=== PATIENT | female | born 1975 | race Caucasian/White ===

== ENCOUNTER 2017-08-27 15:45 | Emergency (ER) ==
[2017-08-27 15:51] VITALS: BP 124/82; TEMP 99.3; BMI 31.0
--- NOTE | 2017-08-27 19:07 | ED.PDOC ---
General ED Provider: Dr. JOSLYN RODRIGUEZ Chief Complaint: Respiratory Complaint Stated Complaint: Patient is a 42 year old male who comes to the Er with complaints of body aches fever, States has been exposed to the FLU. T-max 103 Time Seen by Physician: 19:05 Mode of Arrival: Walk-In Information Source: Patient Exam Limitations: No limitations Nursing and Triage Documentation Reviewed and Agree: Yes Reviewed sepsis parameters & appropriate labs ordered?: Yes System Inflammatory Response Syndrome: Pulse >90 BPM Sepsis Protocol: For patient's 13 years and over: Temp is 96.8 and below OR 101 and greater Pulse >90 BPM Resp >20/minute Acutely Altered Mental Status Are patient's symptoms suggestive of a new infection, such as: -Pneumonia -Skin, Soft Tissue -Endocarditis -UTI -Bone, Joint Infection -Implantable Device -Acute Abdominal Infection -Wound Infection -Meningitis -Blood Stream Catheter Infection -Unknown System Inflammatory Response Syndrome: Not Applicable Review of Systems - Review Of Systems Constitutional: Reports: Fever, Malaise, Weakness Eyes: Reports: No symptoms Ears, Nose, Mouth, Throat: Reports: No symptoms Respiratory: Reports: Cough Cardiac: Reports: No symptoms GI: Reports: No symptoms : Reports: No symptoms Musculoskeletal: Reports: No symptoms Skin: Reports: No symptoms Neurological: Reports: Headache Endocrine: Reports: No symptoms Hematologic/Lymphatic: Reports: No symptoms All Other Systems: Reviewed and Negative Past Medical History - Past Medical History Previously Healthy: Yes Endocrine: Reports: None Cardiovascular: Reports: None Respiratory: Reports: None Hematological: Reports: None Gastrointestinal: Reports: None Genitourinary: Reports: None Neuro/Psych: Reports: None Musculoskeletal: Reports: None Cancer: Reports: None Last Menstrual Period: NA - Surgical History General Surgical History: Reports: Orthopedic - Family History Family History: Reports: Unknown - Social History Smoking Status: Current some day smoker Hx Substance Use: No Alcohol Screening: None - Immunizations Tetanus Shot up to Date: Yes Physical Exam - Physical Exam Appearance: Ill-appearing Ill-appearing: Moderate Pain Distress: Moderate Eyes: CHELA, EOMI, Conjunctiva clear ENT: Ears normal Neck: Supple Respiratory: Airway patent, Breath sounds clear, Breath sounds equal, Respirations nonlabored Cardiovascular: RRR, Pulses normal, No rub, No murmur GI/: Soft, Nontender, No masses, Bowel sounds normal, No Organomegaly Musculoskeletal: Normal strength, ROM intact, No edema, No calf tenderness Skin: Warm, Dry, Normal color Neurological: Sensation intact, Motor intact, Reflexes intact, Cranial nerves intact, Alert, Oriented Psychiatric: Affect appropriate, Mood appropriate Interpretation - Radiology Interpretation Radiology Interpretation By: ED Physician Radiology Results: Negative Exam Interpreted: CXR Critical Care Note - Critical Care Note Total Time (mins): 0 Course - Course Orders, Labs, Meds: Lab Review 08/27/17 17:11 Influenza A (Rapid) Negative by naat Influenza B (Rapid) Negative by naat Orders Category Date Time Status FLU A & B MOLECULAR [FLU A/B MOLECULAR] Stat LAB 08/27/17 17:11 Completed MOLECULAR GROUP A STREP Stat LAB 08/27/17 17:11 Completed Ibuprofen [Motrin] MEDS 08/27/17 19:05 Discontinued 800 mg PO ONCE STA Ondansetron [Zofran Odt] MEDS 08/27/17 19:07 Discontinued 4 mg PO ONCE STA Medications Discontinued Medications Generic Name Dose Route Start Last Admin Trade Name Freq PRN Reason Stop Dose Admin Ibuprofen 800 mg 08/27/17 19:05 08/27/17 19:17 Motrin PO 08/27/17 19:06 800 mg ONCE STA Administration Ondansetron HCl 4 mg 08/27/17 19:07 08/27/17 19:17 Zofran Odt PO 08/27/17 19:08 4 mg ONCE STA Administration Vital Signs: Temp Pulse Resp BP Pulse Ox 08/27/17 15:46 99.3 F 102 H 20 124/82 98 Departure - Departure Time of Disposition: 19:30 Disposition: HOME SELF-CARE Discharge Problem: Viral pharyngitis, Viral illness Instructions: Viral Syndrome (ED) Condition: Stable Pt referred to PMD for follow-up: Yes IPMP verified?: No Additional Instructions: Push fluids Alternate Tylenol with motion Prescriptions: Ibuprofen [Motrin] 600 mg PO Q6H PRN #20 tablet PRN Reason: Analgesia Ondansetron HCl [Zofran Tab] 4 mg PO Q8H PRN #14 tablet PRN Reason: Nausea / Vomiting Allergies/Adverse Reactions: Allergies codeine Adverse Reaction (Verified 08/27/17 16:26) Home Medications: Ambulatory Orders Hydrocodone Bit/Acetaminophen [Convoy 5-325] 1 - 2 tab PO Q6HR PRN #12 tablet 01/ 06/16 Orphenadrine Citrate [Norflex] 100 mg PO Q12H PRN #30 tablet.er 08/19/15 Ibuprofen [Motrin] 600 mg PO Q6H PRN #20 tablet 08/27/17 Ondansetron HCl [Zofran Tab] 4 mg PO Q8H PRN #14 tablet 08/27/17 Disposition Discussed With: Patient
[2017-08-27] MEDS: ZOFRAN ODT PO STA (19:17)
[2017-08-27] MEDS: MOTRIN PO STA (19:17)
== END 2017-08-27 19:33 | disposition home or self-care (01) ==
LOC: ED 15:45
DX: B34.9 Viral infection, unspecified (principal); R05 Cough; R53.1 Weakness
CPT/HCPCS: 87502; 87651; 99283